=== PATIENT | female | born 2000 | race African-American/Black ===

== ENCOUNTER 2020-11-05 08:00 | Outpatient (CLI) | payer OTHER ==
[2020-11-05 20:50] LABS: BACTERIAL VAGINOSIS DNA POSITIVE (NEGATIVE); CANDIDA GLABRATA DNA NEGATIVE (NEGATIVE); CANDIDA GROUP DNA NEGATIVE (NEGATIVE); CANDIDA KRUSEI DNA NEGATIVE (NEGATIVE); TRICHOMONAS VAGINALIS DNA NEGATIVE (NEGATIVE)
[2020-11-05 23:29] LABS: CHLAMYDIA TRACHOMATIS DNA NEGATIVE (NEGATIVE); NEISSERIA GONORRHOEAE DNA NEGATIVE (NEGATIVE); TRICHOMONAS VAGINALIS DNA NEGATIVE (NEGATIVE)
[2020-11-06 07:40] LABS: HIV AG/AB 4TH GEN NON-REACTIVE (NON-REACTIVE)
[2020-11-06 12:37] LABS: HEPATITIS B SURFACE ANTIGEN NON-REACTIVE (NON-REACTIVE); HEPATITIS C ANTIBODY NON-REACTIVE (NON-REACTIVE)
--- OUTSIDE RECORDS SUMMARY | 2020-11-13 02:18 | EXTERNAL MEDICAL SUMMARY RPT | Continuity of Care Document ---
:2000 Demographics Phone Unavailable Preferred Language Unknown Marital Status Unknown [facility] Affiliation Unknown Race Unknown Ethnic Group Unknown Author Organization [facility] Address [address] [id number] Phone Care Team Providers Name Role Phone PAWinston Unavailable Unavailable RN Unavailable Unavailable MD Unavailable Unavailable Problems date description facility 20201105 HIV 1&2 with reflex All 20201105 Hepatitis B Surface Antigen All 20201105 Never smoker All 20201105 Vaginitis Pathogens-Affirm MEDICAL SUPPORT SPECIALIST III All [id number] Details of drug misuse behavior All 20201105 Hep C AB with Reflex All 20201105 RPR, Serum with Reflex All 20201105 Urine C&S All 20201105 Alcohol intake All 20201105 Alcohol use All 20201105 CHLAM, NEISSERIA, TRICH DNA All [id number] Dysuria All [id number] Hepatitis A, IgM All Medications date description facility [id number] METRONIDAZOLE All [id number] METRONIDAZOLE All [id number] METRONIDAZOLE All [id number] METRONIDAZOLE All Procedures date description facility [id number] RPR, Serum with Reflex All date description facility [id number] Hep C AB with Reflex All date description facility 88506229 HIV 1&2 with reflex All date description facility [id number] Hepatitis A, IgM All date description facility [id number] Hepatitis B Surface Antigen All date description facility [id number] RPR, Serum with Reflex All date description facility [id number] Hep C AB with Reflex All date description facility 73775245 HIV 1&2 with reflex All date description facility [id number] Hepatitis A, IgM All date description facility [id number] Hepatitis B Surface Antigen All Results test status date ordered by attending specimen kiara e T unknown [id number] unknown unknown unknown T unknown [id number] unknown unknown unknown T unknown 70225950 unknown unknown unknown CANDIDA_GLABRATA_DNA unknown 59199437 unknown unknown un known CANDIDA_KRUSEI_DNA unknown 50751050 unknown unknown unkn own CHLAMYDIA_TRACHOMATIS_ unknown 22646414 unknown unknown unknown DNA T unknown 97390377 unknown unknown unknown T unknown 99599503 unknown unknown unknown TRICHOMONAS_VAGINALIS_ unknown 65222555 unknown unknown unknown DNA DIPSTICK_URINE_STRIP_L unknown 78138794 unknown unknown unknown OT_NUMBER Candida_glabrata_by_Re unknown 20201105 unknown unknown unknown js-mgfr_GUP_-_wmwywzx_j ulture TRICHOMONAS_VAGINALIS_ unknown 83154939 unknown unknown unknown DNA_PROBE protein_urine_semiquan unknown 02045186 unknown unknown unknown titative_dipstick_ glucose_urine_semiquan unknown 15078231 unknown unknown unknown titative Erythrocytes_area_in_U unknown 08977961 unknown unknown unknown rine_sediment_by_Micros copy_high_power_field Hepatitis_C_Antibody_S unknown 18974440 unknown unknown unknown ignal_to_Cut-Off chlamydia_DNA_probe unknown 31509602 unknown unknown unk nown Candida_krusei_by_Real unknown [id number] unknown unknown unknown -Time_PCR RBC_urine_dipstick unknown 17693719 unknown unknown unkn own Albumin_Presence_in_Ur unknown 62258865 unknown unknown unknown ine Chlamydia_trachomatis_ unknown 70816948 unknown unknown unknown DNA_Presence_in_Unspeci fied_specimen_by_NAA_wi th_probe_detection urine_color unknown 81076861 unknown unknown unknown bilirubin_urine unknown 88219881 unknown unknown unknown ketones_urine_by_test_ unknown 45734920 unknown unknown unknown strip nitrite_urine_semiquan unknown 43916054 unknown unknown unknown titative pH_urine_semiquantitat unknown 73950843 unknown unknown unknown jorge l specific_gravity_urine unknown 55793364 unknown unknown unknown urobilinogen_urine_sem unknown 05775744 unknown unknown unknown iquantitative_dipstick_ leukocyte_esterase_uri unknown 94265985 unknown unknown unknown ne_by_dipstick appearance_urine unknown 53745321 unknown unknown unknow n urinalysis_routine unknown 78273942 unknown unknown unkn own Appearance_of_Urine unknown 71941067 unknown unknown unk nown Bilirubin.total_Presen unknown 56042005 unknown unknown unknown ce_in_Urine_by_Test_str ip Color_of_Urine unknown 88459208 unknown unknown unknown Glucose_Mass_volume_in unknown 15340635 unknown unknown unknown _Urine_by_Test_strip Ketones_Mass_volume_in unknown 61514504 unknown unknown unknown _Urine_by_Test_strip Leukocyte_esterase_Pre unknown 91829654 unknown unknown unknown sence_in_Urine_by_Test_ strip Nitrite_Presence_in_Ur unknown 32076873 unknown unknown unknown ine_by_Test_strip pH_of_Urine_by_Test_st unknown 14552153 unknown unknown unknown rip Specific_gravity_of_Ur unknown 36715297 unknown unknown unknown ine_by_Test_strip Urobilinogen_Presence_ unknown 79154575 unknown unknown unknown in_Urine_by_Test_strip Candida_glabrata_DNA_P unknown 32344790 unknown unknown unknown resence_in_Vaginal_flui d_by_NAA_with_probe_det ection SIGNAL_TO_CUT-OFF unknown 69457192 unknown unknown unkno wn DIPSTICK_URINE_STRIP_L unknown 31421508 unknown unknown unknown OT_NUMBER protein_urine_semiquan unknown 42409796 unknown unknown unknown titative_dipstick_ glucose_urine_semiquan unknown 50885272 unknown unknown unknown titative Erythrocytes_area_in_U unknown 43872402 unknown unknown unknown rine_sediment_by_Micros copy_high_power_field RBC_urine_dipstick unknown 16901129 unknown unknown unkn own Albumin_Presence_in_Ur unknown 80284277 unknown unknown unknown ine urine_color unknown 97868829 unknown unknown unknown bilirubin_urine unknown 18392356 unknown unknown unknown ketones_urine_by_test_ unknown 24014698 unknown unknown unknown strip nitrite_urine_semiquan unknown 95091370 unknown unknown unknown titative pH_urine_semiquantitat unknown 14992985 unknown unknown unknown jorge l specific_gravity_urine unknown 73428157 unknown unknown unknown urobilinogen_urine_sem unknown 13523424 unknown unknown unknown iquantitative_dipstick_ leukocyte_esterase_uri unknown 06316976 unknown unknown unknown ne_by_dipstick appearance_urine unknown 56881251 unknown unknown unknow n urinalysis_routine unknown 34936131 unknown unknown unkn own Appearance_of_Urine unknown 01587920 unknown unknown unk nown Bilirubin.total_Presen unknown 47074937 unknown unknown unknown ce_in_Urine_by_Test_str ip Color_of_Urine unknown 12705658 unknown unknown unknown Glucose_Mass_volume_in unknown 94166103 unknown unknown unknown _Urine_by_Test_strip Ketones_Mass_volume_in unknown 07042295 unknown unknown unknown _Urine_by_Test_strip Leukocyte_esterase_Pre unknown 47224481 unknown unknown unknown sence_in_Urine_by_Test_ strip Nitrite_Presence_in_Ur unknown 97203380 unknown unknown unknown ine_by_Test_strip pH_of_Urine_by_Test_st unknown 65171321 unknown unknown unknown rip Specific_gravity_of_Ur unknown 22870729 unknown unknown unknown ine_by_Test_strip Urobilinogen_Presence_ unknown 96026971 unknown unknown unknown in_Urine_by_Test_strip T unknown 56033982 unknown unknown unknown T unknown 15744360 unknown unknown unknown T unknown 92732125 unknown unknown unknown CANDIDA_GLABRATA_DNA unknown 79989262 unknown unknown un known CANDIDA_KRUSEI_DNA unknown 27250540 unknown unknown unkn own CHLAMYDIA_TRACHOMATIS_ unknown 65426591 unknown unknown unknown DNA T unknown 25679050 unknown unknown unknown T unknown 17857748 unknown unknown unknown TRICHOMONAS_VAGINALIS_ unknown 14174931 unknown unknown unknown DNA DIPSTICK_URINE_STRIP_L unknown 70437012 unknown unknown unknown OT_NUMBER Candida_glabrata_by_Re unknown 87910524 unknown unknown unknown af-zstj_JXG_-_lfjqryo_c ulture TRICHOMONAS_VAGINALIS_ unknown 62541894 unknown unknown unknown DNA_PROBE protein_urine_semiquan unknown 24847736 unknown unknown unknown titative_dipstick_ glucose_urine_semiquan unknown 21561361 unknown unknown unknown titative Erythrocytes_area_in_U unknown 54597084 unknown unknown unknown rine_sediment_by_Micros copy_high_power_field Hepatitis_C_Antibody_S unknown 55669636 unknown unknown unknown ignal_to_Cut-Off chlamydia_DNA_probe unknown 50004519 unknown unknown unk nown Candida_krusei_by_Real unknown 86740368 unknown unknown unknown -Time_PCR RBC_urine_dipstick unknown 10420988 unknown unknown unkn own Albumin_Presence_in_Ur unknown 03040243 unknown unknown unknown ine Chlamydia_trachomatis_ unknown 87894073 unknown unknown unknown DNA_Presence_in_Unspeci fied_specimen_by_NAA_wi th_probe_detection urine_color unknown 62776325 unknown unknown unknown bilirubin_urine unknown 98687749 unknown unknown unknown ketones_urine_by_test_ unknown 69658198 unknown unknown unknown strip nitrite_urine_semiquan unknown 43226530 unknown unknown unknown titative pH_urine_semiquantitat unknown 99058105 unknown unknown unknown jorge l specific_gravity_urine unknown 32212488 unknown unknown unknown urobilinogen_urine_sem unknown 24166302 unknown unknown unknown iquantitative_dipstick_ leukocyte_esterase_uri unknown 59348214 unknown unknown unknown ne_by_dipstick appearance_urine unknown 72662855 unknown unknown unknow n urinalysis_routine unknown 91502647 unknown unknown unkn own Appearance_of_Urine unknown 35494855 unknown unknown unk nown Bilirubin.total_Presen unknown 68216278 unknown unknown unknown ce_in_Urine_by_Test_str ip Color_of_Urine unknown 69563627 unknown unknown unknown Glucose_Mass_volume_in unknown 35261566 unknown unknown unknown _Urine_by_Test_strip Ketones_Mass_volume_in unknown 94165099 unknown unknown unknown _Urine_by_Test_strip Leukocyte_esterase_Pre unknown 39139475 unknown unknown unknown sence_in_Urine_by_Test_ strip Nitrite_Presence_in_Ur unknown 63575183 unknown unknown unknown ine_by_Test_strip pH_of_Urine_by_Test_st unknown 22457455 unknown unknown unknown rip Specific_gravity_of_Ur unknown 68516399 unknown unknown unknown ine_by_Test_strip Urobilinogen_Presence_ unknown 54100715 unknown unknown unknown in_Urine_by_Test_strip Candida_glabrata_DNA_P unknown 60806772 unknown unknown unknown resence_in_Vaginal_flui d_by_NAA_with_probe_det ection SIGNAL_TO_CUT-OFF unknown 89294699 unknown unknown unkno wn facility observation status value reference units lab abnor mal line range code notes All T unknown NEGATIVE unknown C.TRACH unknown u nknown _DNA All T unknown NEGATIVE unknown C._GLAB unknown u nknown RATA_DNA All T unknown NEGATIVE unknown C._KRUS unknown u nknown EI_DNA All CANDIDA_GLAB unknown NEGATIVE unknown CGLABRA unkn own unknown RATA_DNA TA_DNA All CANDIDA_KRUS unknown NEGATIVE unknown CKRUSEI unkn own unknown EI_DNA _DNA All CHLAMYDIA_TR unknown NEGATIVE unknown CTDNA unkno wn unknown ACHOMATIS_DNA All T unknown 0.00 unknown SIGNAL_ unknown unk nown CUT-OFF All T unknown NEGATIVE unknown T.VAGIN unknown u nknown ALIS_DNA All TRICHOMONAS_ unknown NEGATIVE unknown TVDNA unkno wn unknown VAGINALIS_DNA All DIPSTICK_URI unknown 5067 unknown _101400 unknow n unknown NE_STRIP_LOT_ NUMBER All Candida_glab unknown NEGATIVE unknown _108787 unkn own unknown rata_by_Real- time_PCR_-_va ginal_culture All TRICHOMONAS_ unknown NEGATIVE unknown _113002 unkn own unknown VAGINALIS_DNA _PROBE All protein_urin unknown negative unknown _118 unkno wn unknown e_semiquantit ative_dipstic k_ All glucose_urin unknown negative unknown _123 unkno wn unknown e_semiquantit ative All Erythrocytes unknown non-hemol unknown _13945- unk nown unknown _area_in_Urin yzed trace 1 e_sediment_by _Microscopy_h igh_power_fie ld All Hepatitis_C_ unknown 0.00 unknown _143985 unknow n unknown Antibody_Sign al_to_Cut-Off All chlamydia_DN unknown NEGATIVE unknown _14722 unkno wn unknown A_probe All Candida_krus unknown NEGATIVE unknown _153562 unkn own unknown ei_by_Real-Ti me_PCR All RBC_urine_di unknown non-hemol unknown _170000 unk nown unknown pstick yzed trace 5 All Albumin_Pres unknown negative unknown _1753-3 unkn own unknown ence_in_Urine All Chlamydia_tra unknown NEGATIVE unknown _21613- unkn own unknown chomatis_DNA_ 5 Presence_in_U nspecified_sp ecimen_by_NAA _with_probe_d etection All urine_color unknown straw unknown _2751 unknown unknown All bilirubin_ur unknown negative unknown _319 unkno wn unknown ine All ketones_urin unknown trace (5) unknown _322 unkn own unknown e_by_test_str ip All nitrite_urin unknown negative unknown _323 unkno wn unknown e_semiquantit ative All pH_urine_sem unknown 6 unknown _324 unknown unknown iquantitative All specific_gra unknown 1.020 unknown _325 unknown unknown vity_urine All urobilinogen unknown negative unknown _326 unkno wn unknown _urine_semiqu antitative_di pstick_ All leukocyte_es unknown negative unknown _327 unkno wn unknown terase_urine_ by_dipstick All appearance_u unknown cloudy unknown _328 unknown unknown rine All urinalysis_r unknown Clean unknown _47 unknown unknown outine Catch All Appearance_o unknown cloudy unknown _5767-9 unknow n unknown f_Urine All Bilirubin.to unknown negative unknown _5770-3 unkn own unknown tal_Presence_ in_Urine_by_T est_strip All Color_of_Uri unknown straw unknown _5778-6 unknow n unknown ne All Glucose_Mass unknown negative unknown _5792-7 unkn own unknown _volume_in_Ur ine_by_Test_s trip All Ketones_Mass unknown trace (5) unknown _5797-6 unk nown unknown _volume_in_Ur ine_by_Test_s trip All Leukocyte_es unknown negative unknown _5799-2 unkn own unknown terase_Presen ce_in_Urine_b y_Test_strip All Nitrite_Pres unknown negative unknown _5802-4 unkn own unknown ence_in_Urine _by_Test_stri p All pH_of_Urine_ unknown 6 unknown _5803-2 unknow n unknown by_Test_strip All Specific_gra unknown 1.020 unknown _5811-5 unknow n unknown vity_of_Urine _by_Test_stri p All Urobilinogen unknown negative unknown _5818-0 unkn own unknown _Presence_in_ Urine_by_Test _strip All Candida_glab unknown NEGATIVE unknown _69563- unkn own unknown rata_DNA_Pres 5 ence_in_Vagin al_fluid_by_N AA_with_probe _detection All SIGNAL_TO_CU unknown 0.00 unknown qSIGNAL unknow n unknown T-OFF All DIPSTICK_URI unknown 5067 unknown _101400 unknow n unknown NE_STRIP_LOT_ NUMBER All protein_urin unknown negative unknown _118 unkno wn unknown e_semiquantit ative_dipstic k_ All glucose_urin unknown negative unknown _123 unkno wn unknown e_semiquantit ative All Erythrocytes unknown non-hemol unknown _13945- unk nown unknown _area_in_Urin yzed trace 1 e_sediment_by _Microscopy_h igh_power_fie ld All RBC_urine_di unknown non-hemol unknown _170000 unk nown unknown pstick yzed trace 5 All Albumin_Pres unknown negative unknown _1753-3 unkn own unknown ence_in_Urine All urine_color unknown straw unknown _2751 unknown unknown All bilirubin_ur unknown negative unknown _319 unkno wn unknown ine All ketones_urin unknown trace (5) unknown _322 unkn own unknown e_by_test_str ip All nitrite_urin unknown negative unknown _323 unkno wn unknown e_semiquantit ative All pH_urine_sem unknown 6 unknown _324 unknown unknown iquantitative All specific_gra unknown 1.020 unknown _325 unknown unknown vity_urine All urobilinogen unknown negative unknown _326 unkno wn unknown _urine_semiqu antitative_di pstick_ All leukocyte_es unknown negative unknown _327 unkno wn unknown terase_urine_ by_dipstick All appearance_u unknown cloudy unknown _328 unknown unknown rine All urinalysis_r unknown Clean unknown _47 unknown unknown outine Catch All Appearance_o unknown cloudy unknown _5767-9 unknow n unknown f_Urine All Bilirubin.to unknown negative unknown _5770-3 unkn own unknown tal_Presence_ in_Urine_by_T est_strip All Color_of_Uri unknown straw unknown _5778-6 unknow n unknown ne All Glucose_Mass unknown negative unknown _5792-7 unkn own unknown _volume_in_Ur ine_by_Test_s trip All Ketones_Mass unknown trace (5) unknown _5797-6 unk nown unknown _volume_in_Ur ine_by_Test_s trip All Leukocyte_es unknown negative unknown _5799-2 unkn own unknown terase_Presen ce_in_Urine_b y_Test_strip All Nitrite_Pres unknown negative unknown _5802-4 unkn own unknown ence_in_Urine _by_Test_stri p All pH_of_Urine_ unknown 6 unknown _5803-2 unknow n unknown by_Test_strip All Specific_gra unknown 1.020 unknown _5811-5 unknow n unknown vity_of_Urine _by_Test_stri p All Urobilinogen unknown negative unknown _5818-0 unkn own unknown _Presence_in_ Urine_by_Test _strip All T unknown NEGATIVE unknown C.TRACH unknown u nknown _DNA All T unknown NEGATIVE unknown C._GLAB unknown u nknown RATA_DNA All T unknown NEGATIVE unknown C._KRUS unknown u nknown EI_DNA All CANDIDA_GLAB unknown NEGATIVE unknown CGLABRA unkn own unknown RATA_DNA TA_DNA All CANDIDA_KRUS unknown NEGATIVE unknown CKRUSEI unkn own unknown EI_DNA _DNA All CHLAMYDIA_TR unknown NEGATIVE unknown CTDNA unkno wn unknown ACHOMATIS_DNA All T unknown 0.00 unknown SIGNAL_ unknown unk nown CUT-OFF All T unknown NEGATIVE unknown T.VAGIN unknown u nknown ALIS_DNA All TRICHOMONAS_ unknown NEGATIVE unknown TVDNA unkno wn unknown VAGINALIS_DNA All DIPSTICK_URI unknown 5067 unknown _101400 unknow n unknown NE_STRIP_LOT_ NUMBER All Candida_glab unknown NEGATIVE unknown _108787 unkn own unknown rata_by_Real- time_PCR_-_va ginal_culture All TRICHOMONAS_ unknown NEGATIVE unknown _113002 unkn own unknown VAGINALIS_DNA _PROBE All protein_urin unknown negative unknown _118 unkno wn unknown e_semiquantit ative_dipstic k_ All glucose_urin unknown negative unknown _123 unkno wn unknown e_semiquantit ative All Erythrocytes unknown non-hemol unknown _13945- unk nown unknown _area_in_Urin yzed trace 1 e_sediment_by _Microscopy_h igh_power_fie ld All Hepatitis_C_ unknown 0.00 unknown _143985 unknow n unknown Antibody_Sign al_to_Cut-Off All chlamydia_DN unknown NEGATIVE unknown _14722 unkno wn unknown A_probe All Candida_krus unknown NEGATIVE unknown _153562 unkn own unknown ei_by_Real-Ti me_PCR All RBC_urine_di unknown non-hemol unknown _170000 unk nown unknown pstick yzed trace 5 All Albumin_Pres unknown negative unknown _1753-3 unkn own unknown ence_in_Urine All Chlamydia_tra unknown NEGATIVE unknown _21613- unkn own unknown chomatis_DNA_ 5 Presence_in_U nspecified_sp ecimen_by_NAA _with_probe_d etection All urine_color unknown straw unknown _2751 unknown unknown All bilirubin_ur unknown negative unknown _319 unkno wn unknown ine All ketones_urin unknown trace (5) unknown _322 unkn own unknown e_by_test_str ip All nitrite_urin unknown negative unknown _323 unkno wn unknown e_semiquantit ative All pH_urine_sem unknown 6 unknown _324 unknown unknown iquantitative All specific_gra unknown 1.020 unknown _325 unknown unknown vity_urine All urobilinogen unknown negative unknown _326 unkno wn unknown _urine_semiqu antitative_di pstick_ All leukocyte_es unknown negative unknown _327 unkno wn unknown terase_urine_ by_dipstick All appearance_u unknown cloudy unknown _328 unknown unknown rine All urinalysis_r unknown Clean unknown _47 unknown unknown outine Catch All Appearance_o unknown cloudy unknown _5767-9 unknow n unknown f_Urine All Bilirubin.to unknown negative unknown _5770-3 unkn own unknown tal_Presence_ in_Urine_by_T est_strip All Color_of_Uri unknown straw unknown _5778-6 unknow n unknown ne All Glucose_Mass unknown negative unknown _5792-7 unkn own unknown _volume_in_Ur ine_by_Test_s trip All Ketones_Mass unknown trace (5) unknown _5797-6 unk nown unknown _volume_in_Ur ine_by_Test_s trip All Leukocyte_es unknown negative unknown _5799-2 unkn own unknown terase_Presen ce_in_Urine_b y_Test_strip All Nitrite_Pres unknown negative unknown _5802-4 unkn own unknown ence_in_Urine _by_Test_stri p All pH_of_Urine_ unknown 6 unknown _5803-2 unknow n unknown by_Test_strip All Specific_gra unknown 1.020 unknown _5811-5 unknow n unknown vity_of_Urine _by_Test_stri p All Urobilinogen unknown negative unknown _5818-0 unkn own unknown _Presence_in_ Urine_by_Test _strip All Candida_glab unknown NEGATIVE unknown _69563- unkn own unknown rata_DNA_Pres 5 ence_in_Vagin al_fluid_by_N AA_with_probe _detection All SIGNAL_TO_CU unknown 0.00 unknown qSIGNAL unknow n unknown T-OFF Vital Signs date measurement value source 20201105 BMI 22.48 kg/m2 20201105 BP_diastolic 71 mm[Hg] 20201105 BP_systolic 123 mm[Hg] 20201105 heart_rate 89 /min 20201105 height_metric 165.1 cm 20201105 height_standard 65 in 20201105 respiration_rate 16 /min 20201105 temperature_metric 36.28 C 20201105 temperature_standard 97.3 F 20201105 weight_metric 61.05 kg 20201105 weight_standard 134.6 lb 20201105 BMI 22.48 kg/m2 20201105 BP_diastolic 71 mm[Hg] 20201105 BP_systolic 123 mm[Hg] 20201105 heart_rate 89 /min 20201105 height_metric 165.1 cm 20201105 height_standard 65 in 20201105 respiration_rate 16 /min 20201105 temperature_metric 36.28 C 20201105 temperature_standard 97.3 F 20201105 weight_metric 61.05 kg 20201105 weight_standard 134.6 lb 20201105 BMI 22.48 kg/m2 20201105 BP_diastolic 71 mm[Hg] 20201105 BP_systolic 123 mm[Hg] 20201105 heart_rate 89 /min 20201105 height_metric 165.1 cm 20201105 height_standard 65 in 20201105 respiration_rate 16 /min 20201105 temperature_metric 36.28 C 20201105 temperature_standard 97.3 F 20201105 weight_metric 61.05 kg 20201105 weight_standard 134.6 lb Social History date description facility [id number]
== END 2020-11-05 23:59 | disposition home or self-care (01) ==
LOC: LAB.N 08:00
PROVIDERS: ATTEND Physician Assistant Medical
DX: R30.0 Dysuria (principal)
CPT/HCPCS: 36415; 86592; 86709; 86803; 87086; 87340; 87389; 87491; 87591; 87661; 87801

== ENCOUNTER 2020-11-29 12:52 | Emergency (ER) | payer OTHER ==
--- OUTSIDE RECORDS SUMMARY | 2020-11-29 12:56 | EXTERNAL MEDICAL SUMMARY RPT | Continuity of Care Document ---
:2000 Demographics Phone Unavailable Preferred Language Qatari Marital Status Unknown Yarsani Affiliation Unknown Race Unknown Ethnic Group Unknown Author Organization [place] Address [address] [id number] Phone Care Team Providers Name Role Phone RN, Amanda Del Angel, Unavailable Unavailable DAMARIS, Abraham Zavala, Unavailable Unavailable , Dionicio Schultz, Unavailable Unavailable Kelly Kimble Unavailable Unavailable Problems date description facility 20201105 HIV 1&2 with reflex All 20201105 Hepatitis B Surface Antigen All 20201105 Never smoker All 20201105 Vaginitis Pathogens-Affirm P[employer] III All 20201105 Details of drug misuse behavior All 20201105 Hep C AB with Reflex All 20201105 RPR, Serum with Reflex All 20201105 Urine C&S All 20201105 Alcohol intake All 20201105 Alcohol use All 20201105 CHLAM, NEISSERIA, TRICH DNA All 20201105 Dysuria All 20201105 Hepatitis A, IgM All Medications date description facility [id number] METRONIDAZOLE All 20201106 METRONIDAZOLE All [id number] METRONIDAZOLE All [id number] METRONIDAZOLE All 63003024 Diazepam 5 MG Oral [facility] Procedures date description facility [id number] RPR, Serum with Reflex All date description facility [id number] Hep C AB with Reflex All date description facility 20201105 HIV 1&2 with reflex All date description facility [id number] Hepatitis A, IgM All date description facility [id number] Hepatitis B Surface Antigen All date description facility [id number] RPR, Serum with Reflex All date description facility 32133665 Hep C AB with Reflex All date description facility 87490918 HIV 1&2 with reflex All date description facility [id number] Hepatitis A, IgM All date description facility 15903247 Hepatitis B Surface Antigen All date description facility 12122033 [facility] Results test status date ordered by attending specimen kiara e T unknown 20201105 unknown unknown unknown T unknown 20201105 unknown unknown unknown T unknown [id number] unknown unknown unknown CANDIDA_GLABRATA_DNA unknown 20201105 unknown unknown un known CANDIDA_KRUSEI_DNA unknown 20201105 unknown unknown unkn own CHLAMYDIA_TRACHOMATIS_ unknown 20201105 unknown unknown unknown DNA T unknown 20201105 unknown unknown unknown T unknown 20201105 unknown unknown unknown TRICHOMONAS_VAGINALIS_ unknown [id number] unknown unknown unknown DNA DIPSTICK_URINE_STRIP_L unknown 46946495 unknown unknown unknown OT_NUMBER Candida_glabrata_by_Re unknown 12724411 unknown unknown unknown rx-ssdj_NMD_-_ghsadfx_c ulture TRICHOMONAS_VAGINALIS_ unknown 76370948 unknown unknown unknown DNA_PROBE protein_urine_semiquan unknown 89029271 unknown unknown unknown titative_dipstick_ glucose_urine_semiquan unknown 93464608 unknown unknown unknown titative Erythrocytes_area_in_U unknown 54410274 unknown unknown unknown rine_sediment_by_Micros copy_high_power_field Hepatitis_C_Antibody_S unknown 13895854 unknown unknown unknown ignal_to_Cut-Off chlamydia_DNA_probe unknown 54945678 unknown unknown unk nown Candida_krusei_by_Real unknown 22406610 unknown unknown unknown -Time_PCR RBC_urine_dipstick unknown 21924482 unknown unknown unkn own Albumin_Presence_in_Ur unknown 88623300 unknown unknown unknown ine Chlamydia_trachomatis_ unknown 04092883 unknown unknown unknown DNA_Presence_in_Unspeci fied_specimen_by_NAA_wi th_probe_detection urine_color unknown 23402924 unknown unknown unknown bilirubin_urine unknown 64479180 unknown unknown unknown ketones_urine_by_test_ unknown 37341661 unknown unknown unknown strip nitrite_urine_semiquan unknown 44135968 unknown unknown unknown titative pH_urine_semiquantitat unknown 38519338 unknown unknown unknown jorge l specific_gravity_urine unknown 69337097 unknown unknown unknown urobilinogen_urine_sem unknown 79318305 unknown unknown unknown iquantitative_dipstick_ leukocyte_esterase_uri unknown 86452315 unknown unknown unknown ne_by_dipstick appearance_urine unknown 16715187 unknown unknown unknow n urinalysis_routine unknown 26491745 unknown unknown unkn own Appearance_of_Urine unknown 22123910 unknown unknown unk nown Bilirubin.total_Presen unknown 66127122 unknown unknown unknown ce_in_Urine_by_Test_str ip Color_of_Urine unknown 38037727 unknown unknown unknown Glucose_Mass_volume_in unknown 42825756 unknown unknown unknown _Urine_by_Test_strip Ketones_Mass_volume_in unknown 68080708 unknown unknown unknown _Urine_by_Test_strip Leukocyte_esterase_Pre unknown 25170233 unknown unknown unknown sence_in_Urine_by_Test_ strip Nitrite_Presence_in_Ur unknown 42871203 unknown unknown unknown ine_by_Test_strip pH_of_Urine_by_Test_st unknown 52447883 unknown unknown unknown rip Specific_gravity_of_Ur unknown 36739039 unknown unknown unknown ine_by_Test_strip Urobilinogen_Presence_ unknown 91671077 unknown unknown unknown in_Urine_by_Test_strip Candida_glabrata_DNA_P unknown 90522903 unknown unknown unknown resence_in_Vaginal_flui d_by_NAA_with_probe_det ection SIGNAL_TO_CUT-OFF unknown 11527620 unknown unknown unkno wn DIPSTICK_URINE_STRIP_L unknown 49453920 unknown unknown unknown OT_NUMBER protein_urine_semiquan unknown 30661269 unknown unknown unknown titative_dipstick_ glucose_urine_semiquan unknown 98775880 unknown unknown unknown titative Erythrocytes_area_in_U unknown 50822909 unknown unknown unknown rine_sediment_by_Micros copy_high_power_field RBC_urine_dipstick unknown 18078616 unknown unknown unkn own Albumin_Presence_in_Ur unknown 71254531 unknown unknown unknown ine urine_color unknown 85289526 unknown unknown unknown bilirubin_urine unknown 48308347 unknown unknown unknown ketones_urine_by_test_ unknown 83372407 unknown unknown unknown strip nitrite_urine_semiquan unknown 86817283 unknown unknown unknown titative pH_urine_semiquantitat unknown 28699202 unknown unknown unknown jorge l specific_gravity_urine unknown 09586334 unknown unknown unknown urobilinogen_urine_sem unknown 90988267 unknown unknown unknown iquantitative_dipstick_ leukocyte_esterase_uri unknown 50631839 unknown unknown unknown ne_by_dipstick appearance_urine unknown 12599429 unknown unknown unknow n urinalysis_routine unknown 26581584 unknown unknown unkn own Appearance_of_Urine unknown 52936332 unknown unknown unk nown Bilirubin.total_Presen unknown 77638168 unknown unknown unknown ce_in_Urine_by_Test_str ip Color_of_Urine unknown 31944259 unknown unknown unknown Glucose_Mass_volume_in unknown 30379772 unknown unknown unknown _Urine_by_Test_strip Ketones_Mass_volume_in unknown 38270608 unknown unknown unknown _Urine_by_Test_strip Leukocyte_esterase_Pre unknown 02688014 unknown unknown unknown sence_in_Urine_by_Test_ strip Nitrite_Presence_in_Ur unknown 40552018 unknown unknown unknown ine_by_Test_strip pH_of_Urine_by_Test_st unknown 12419093 unknown unknown unknown rip Specific_gravity_of_Ur unknown 60639329 unknown unknown unknown ine_by_Test_strip Urobilinogen_Presence_ unknown 15652007 unknown unknown unknown in_Urine_by_Test_strip T unknown 47887713 unknown unknown unknown T unknown 74616123 unknown unknown unknown T unknown 59570688 unknown unknown unknown CANDIDA_GLABRATA_DNA unknown 92384334 unknown unknown un known CANDIDA_KRUSEI_DNA unknown 19635391 unknown unknown unkn own CHLAMYDIA_TRACHOMATIS_ unknown 94257547 unknown unknown unknown DNA T unknown 75403808 unknown unknown unknown T unknown 01298524 unknown unknown unknown TRICHOMONAS_VAGINALIS_ unknown 72968057 unknown unknown unknown DNA DIPSTICK_URINE_STRIP_L unknown 65644439 unknown unknown unknown OT_NUMBER Candida_glabrata_by_Re unknown 65870193 unknown unknown unknown sm-qytd_VNI_-_kqtxtdi_s ulture TRICHOMONAS_VAGINALIS_ unknown 72012424 unknown unknown unknown DNA_PROBE protein_urine_semiquan unknown 62889566 unknown unknown unknown titative_dipstick_ glucose_urine_semiquan unknown 81468826 unknown unknown unknown titative Erythrocytes_area_in_U unknown 84387158 unknown unknown unknown rine_sediment_by_Micros copy_high_power_field Hepatitis_C_Antibody_S unknown 34991534 unknown unknown unknown ignal_to_Cut-Off chlamydia_DNA_probe unknown 12564290 unknown unknown unk nown Candida_krusei_by_Real unknown 92518458 unknown unknown unknown -Time_PCR RBC_urine_dipstick unknown 91924552 unknown unknown unkn own Albumin_Presence_in_Ur unknown 68222360 unknown unknown unknown ine Chlamydia_trachomatis_ unknown 15153156 unknown unknown unknown DNA_Presence_in_Unspeci fied_specimen_by_NAA_wi th_probe_detection urine_color unknown 96896813 unknown unknown unknown bilirubin_urine unknown 94639669 unknown unknown unknown ketones_urine_by_test_ unknown 26955419 unknown unknown unknown strip nitrite_urine_semiquan unknown 33876573 unknown unknown unknown titative pH_urine_semiquantitat unknown 30374553 unknown unknown unknown jorge l specific_gravity_urine unknown 31296581 unknown unknown unknown urobilinogen_urine_sem unknown 04291829 unknown unknown unknown iquantitative_dipstick_ leukocyte_esterase_uri unknown 59391543 unknown unknown unknown ne_by_dipstick appearance_urine unknown 44967546 unknown unknown unknow n urinalysis_routine unknown 81500516 unknown unknown unkn own Appearance_of_Urine unknown 13390952 unknown unknown unk nown Bilirubin.total_Presen unknown 20826785 unknown unknown unknown ce_in_Urine_by_Test_str ip Color_of_Urine unknown 41964728 unknown unknown unknown Glucose_Mass_volume_in unknown 35320192 unknown unknown unknown _Urine_by_Test_strip Ketones_Mass_volume_in unknown 68561306 unknown unknown unknown _Urine_by_Test_strip Leukocyte_esterase_Pre unknown 76800184 unknown unknown unknown sence_in_Urine_by_Test_ strip Nitrite_Presence_in_Ur unknown 53923010 unknown unknown unknown ine_by_Test_strip pH_of_Urine_by_Test_st unknown 87233820 unknown unknown unknown rip Specific_gravity_of_Ur unknown 85877959 unknown unknown unknown ine_by_Test_strip Urobilinogen_Presence_ unknown 75629761 unknown unknown unknown in_Urine_by_Test_strip Candida_glabrata_DNA_P unknown 98441769 unknown unknown unknown resence_in_Vaginal_flui d_by_NAA_with_probe_det ection SIGNAL_TO_CUT-OFF unknown 70645105 unknown unknown unkno wn facility observation status [...] weight_metric 61.05 kg 20201105 weight_standard 134.6 lb date measurement value source 20201127 BMI 22.1 kg/m2 20201127 BP_diastolic 71 mm[Hg] 20201127 BP_systolic 108 mm[Hg] 20201127 heart_rate 71 /min 20201127 height_metric 165.1 cm 20201127 height_standard 65 in 20201127 respiration_rate 16 /min 20201127 temperature_metric 36.61 C 20201127 temperature_standard 97.9 F 20201127 weight_metric 60.32 kg 20201127 weight_standard 132.98 lb Social History date description facility [id number]
--- OUTSIDE RECORDS SUMMARY | 2020-11-29 13:17 | EXTERNAL MEDICAL SUMMARY RPT | Continuity of Care Document ---
:2000 Demographics Phone Unavailable Preferred Language Norwegian Marital Status Unknown Mandaen Affiliation Unknown Race Unknown Ethnic Group Unknown Author Organization [place] Address [address] [id number] Phone Care Team Providers Name Role Phone MD, Dionicio Schultz, Unavailable Unavailable Abraham OCAMPO, Unavailable Unavailable RN, Amanda Del Anegl, Unavailable Unavailable Kelly Kimble Unavailable Unavailable Problems date description facility 20201105 HIV 1&2 with reflex All 20201105 Hepatitis B Surface Antigen All 20201105 Never smoker All 20201105 Vaginitis Pathogens-Affirm [employer] III All 20201105 Details of drug misuse behavior All 20201105 Hep C AB with Reflex All 20201105 RPR, Serum with Reflex All 20201105 Urine C&S All 20201105 Alcohol intake All 20201105 Alcohol use All 20201105 CHLAM, NEISSERIA, TRICH DNA All 20201105 Dysuria All 20201105 Hepatitis A, IgM All Medications date description facility [id number] METRONIDAZOLE All 20201106 METRONIDAZOLE All 35513434 METRONIDAZOLE All 67797436 METRONIDAZOLE All 67660335 Diazepam 5 MG Oral [facility] Procedures date description facility [id number] RPR, Serum with Reflex All date description facility 09305397 Hep C AB with Reflex All date description facility 20201105 HIV 1&2 with reflex All date description facility 27301481 Hepatitis A, IgM All date description facility 03519627 Hepatitis B Surface Antigen All date description facility 53382807 RPR, Serum with Reflex All date description facility 39106446 Hep C AB with Reflex All date description facility 19005301 HIV 1&2 with reflex All date description facility 00031464 Hepatitis A, IgM All date description facility 84157182 Hepatitis B Surface Antigen All date description facility 30896870 [facility] Results test status date ordered by attending specimen kiara e T unknown 20201105 unknown unknown unknown T unknown 20201105 unknown unknown unknown T unknown [id number] unknown unknown unknown CANDIDA_GLABRATA_DNA unknown 20201105 unknown unknown un known CANDIDA_KRUSEI_DNA unknown 20201105 unknown unknown unkn own CHLAMYDIA_TRACHOMATIS_ unknown 20201105 unknown unknown unknown DNA T unknown 20201105 unknown unknown unknown T unknown 20201105 unknown unknown unknown TRICHOMONAS_VAGINALIS_ unknown 10889606 unknown unknown unknown DNA DIPSTICK_URINE_STRIP_L unknown 33450346 unknown unknown unknown OT_NUMBER Candida_glabrata_by_Re unknown 72752273 unknown unknown unknown ln-dsdx_BJP_-_gqdagwu_p ulture TRICHOMONAS_VAGINALIS_ unknown 93808098 unknown unknown unknown DNA_PROBE protein_urine_semiquan unknown 59615441 unknown unknown unknown titative_dipstick_ glucose_urine_semiquan unknown 82444493 unknown unknown unknown titative Erythrocytes_area_in_U unknown 50938144 unknown unknown unknown rine_sediment_by_Micros copy_high_power_field Hepatitis_C_Antibody_S unknown 57508794 unknown unknown unknown ignal_to_Cut-Off chlamydia_DNA_probe unknown 55208059 unknown unknown unk nown Candida_krusei_by_Real unknown 72839775 unknown unknown unknown -Time_PCR RBC_urine_dipstick unknown 84075178 unknown unknown unkn own Albumin_Presence_in_Ur unknown 55107085 unknown unknown unknown ine Chlamydia_trachomatis_ unknown 75179033 unknown unknown unknown DNA_Presence_in_Unspeci fied_specimen_by_NAA_wi th_probe_detection urine_color unknown 33279835 unknown unknown unknown bilirubin_urine unknown 17964529 unknown unknown unknown ketones_urine_by_test_ unknown 41216811 unknown unknown unknown strip nitrite_urine_semiquan unknown 36373555 unknown unknown unknown titative pH_urine_semiquantitat unknown 11165921 unknown unknown unknown jorge l specific_gravity_urine unknown 07257537 unknown unknown unknown urobilinogen_urine_sem unknown 80421295 unknown unknown unknown iquantitative_dipstick_ leukocyte_esterase_uri unknown 80695874 unknown unknown unknown ne_by_dipstick appearance_urine unknown 50729906 unknown unknown unknow n urinalysis_routine unknown 82800725 unknown unknown unkn own Appearance_of_Urine unknown 70614985 unknown unknown unk nown Bilirubin.total_Presen unknown 21934054 unknown unknown unknown ce_in_Urine_by_Test_str ip Color_of_Urine unknown 02536537 unknown unknown unknown Glucose_Mass_volume_in unknown 07842487 unknown unknown unknown _Urine_by_Test_strip Ketones_Mass_volume_in unknown 75103958 unknown unknown unknown _Urine_by_Test_strip Leukocyte_esterase_Pre unknown 60867519 unknown unknown unknown sence_in_Urine_by_Test_ strip Nitrite_Presence_in_Ur unknown 90651228 unknown unknown unknown ine_by_Test_strip pH_of_Urine_by_Test_st unknown 10502101 unknown unknown unknown rip Specific_gravity_of_Ur unknown 71256324 unknown unknown unknown ine_by_Test_strip Urobilinogen_Presence_ unknown 78233714 unknown unknown unknown in_Urine_by_Test_strip Candida_glabrata_DNA_P unknown 98862643 unknown unknown unknown resence_in_Vaginal_flui d_by_NAA_with_probe_det ection SIGNAL_TO_CUT-OFF unknown 42942629 unknown unknown unkno wn DIPSTICK_URINE_STRIP_L unknown 77990105 unknown unknown unknown OT_NUMBER protein_urine_semiquan unknown 98759046 unknown unknown unknown titative_dipstick_ glucose_urine_semiquan unknown 59156270 unknown unknown unknown titative Erythrocytes_area_in_U unknown 80752778 unknown unknown unknown rine_sediment_by_Micros copy_high_power_field RBC_urine_dipstick unknown 98012963 unknown unknown unkn own Albumin_Presence_in_Ur unknown 74450962 unknown unknown unknown ine urine_color unknown 17266774 unknown unknown unknown bilirubin_urine unknown 72330986 unknown unknown unknown ketones_urine_by_test_ unknown 71883403 unknown unknown unknown strip nitrite_urine_semiquan unknown 37888732 unknown unknown unknown titative pH_urine_semiquantitat unknown 06856807 unknown unknown unknown jorge l specific_gravity_urine unknown 99950959 unknown unknown unknown urobilinogen_urine_sem unknown 70290788 unknown unknown unknown iquantitative_dipstick_ leukocyte_esterase_uri unknown 36461538 unknown unknown unknown ne_by_dipstick appearance_urine unknown 85546271 unknown unknown unknow n urinalysis_routine unknown 39835358 unknown unknown unkn own Appearance_of_Urine unknown 34847301 unknown unknown unk nown Bilirubin.total_Presen unknown 74669761 unknown unknown unknown ce_in_Urine_by_Test_str ip Color_of_Urine unknown 57366395 unknown unknown unknown Glucose_Mass_volume_in unknown 04022858 unknown unknown unknown _Urine_by_Test_strip Ketones_Mass_volume_in unknown 15148172 unknown unknown unknown _Urine_by_Test_strip Leukocyte_esterase_Pre unknown 59698738 unknown unknown unknown sence_in_Urine_by_Test_ strip Nitrite_Presence_in_Ur unknown 26257877 unknown unknown unknown ine_by_Test_strip pH_of_Urine_by_Test_st unknown 02547158 unknown unknown unknown rip Specific_gravity_of_Ur unknown 40702755 unknown unknown unknown ine_by_Test_strip Urobilinogen_Presence_ unknown 96445658 unknown unknown unknown in_Urine_by_Test_strip T unknown 14669608 unknown unknown unknown T unknown 56915059 unknown unknown unknown T unknown 50097486 unknown unknown unknown CANDIDA_GLABRATA_DNA unknown 25060759 unknown unknown un known CANDIDA_KRUSEI_DNA unknown 85648992 unknown unknown unkn own CHLAMYDIA_TRACHOMATIS_ unknown 30350069 unknown unknown unknown DNA T unknown 61257137 unknown unknown unknown T unknown 68533636 unknown unknown unknown TRICHOMONAS_VAGINALIS_ unknown 71542791 unknown unknown unknown DNA DIPSTICK_URINE_STRIP_L unknown 48188411 unknown unknown unknown OT_NUMBER Candida_glabrata_by_Re unknown 54148484 unknown unknown unknown gh-jkmp_PXL_-_dkgjcvw_k ulture TRICHOMONAS_VAGINALIS_ unknown 18330078 unknown unknown unknown DNA_PROBE protein_urine_semiquan unknown 85442229 unknown unknown unknown titative_dipstick_ glucose_urine_semiquan unknown 41022415 unknown unknown unknown titative Erythrocytes_area_in_U unknown 74850200 unknown unknown unknown rine_sediment_by_Micros copy_high_power_field Hepatitis_C_Antibody_S unknown 98284530 unknown unknown unknown ignal_to_Cut-Off chlamydia_DNA_probe unknown 69873077 unknown unknown unk nown Candida_krusei_by_Real unknown 68554255 unknown unknown unknown -Time_PCR RBC_urine_dipstick unknown 79725233 unknown unknown unkn own Albumin_Presence_in_Ur unknown 70202156 unknown unknown unknown ine Chlamydia_trachomatis_ unknown 02396810 unknown unknown unknown DNA_Presence_in_Unspeci fied_specimen_by_NAA_wi th_probe_detection urine_color unknown 08084623 unknown unknown unknown bilirubin_urine unknown 85510588 unknown unknown unknown ketones_urine_by_test_ unknown 22247340 unknown unknown unknown strip nitrite_urine_semiquan unknown 47362531 unknown unknown unknown titative pH_urine_semiquantitat unknown 43518731 unknown unknown unknown jorge l specific_gravity_urine unknown 35926870 unknown unknown unknown urobilinogen_urine_sem unknown 80752655 unknown unknown unknown iquantitative_dipstick_ leukocyte_esterase_uri unknown 14089881 unknown unknown unknown ne_by_dipstick appearance_urine unknown 06775698 unknown unknown unknow n urinalysis_routine unknown 29166141 unknown unknown unkn own Appearance_of_Urine unknown 52335892 unknown unknown unk nown Bilirubin.total_Presen unknown 29293776 unknown unknown unknown ce_in_Urine_by_Test_str ip Color_of_Urine unknown 13516466 unknown unknown unknown Glucose_Mass_volume_in unknown 60197172 unknown unknown unknown _Urine_by_Test_strip Ketones_Mass_volume_in unknown 04101590 unknown unknown unknown _Urine_by_Test_strip Leukocyte_esterase_Pre unknown 43077267 unknown unknown unknown sence_in_Urine_by_Test_ strip Nitrite_Presence_in_Ur unknown 74005267 unknown unknown unknown ine_by_Test_strip pH_of_Urine_by_Test_st unknown 48334979 unknown unknown unknown rip Specific_gravity_of_Ur unknown 70613071 unknown unknown unknown ine_by_Test_strip Urobilinogen_Presence_ unknown 56873771 unknown unknown unknown in_Urine_by_Test_strip Candida_glabrata_DNA_P unknown 13669607 unknown unknown unknown resence_in_Vaginal_flui d_by_NAA_with_probe_det ection SIGNAL_TO_CUT-OFF unknown 42768529 unknown unknown unkno wn facility observation status [...] 132.98 lb Social History date description facility [id number]
[2020-11-29 13:32] LABS: HCG UR QUAL NEGATIVE
--- NOTE | 2020-11-29 13:42 | ED Physician Documentation ---
History of Present Illness - Stated complaint Stated Complaint: COUGHING UP BLOOD - Chief complaint Chief Complaint: Resp - History obtained from History obtained from: Patient - Additonal information Additional information: 20-year-old woman has had ongoing vaginal bleeding for the last 6 months. She saw her doctor and reportedly had an ultrasound done. It was felt to be due to her control but she notes that she did not have her control started, Depo-Provera, until 3 months after the initiation of the bleeding so she thinks that is likely relevant. At the beginning the vaginal bleeding was heavy, now it is now local [employer] haz[employer]. She denies a possibility of . Today she was coughing and coughed up several times mucus mixed with blood. She not short of breath and she feels fine. She denies pedal edema or calf pain. No recent travel. No history of DVT or PE. No risk factors for TB, such as incarceration, international travel or TB contacts. Last negative TB skin test 4 years ago. Never positive. Review of Systems Constitutional: denies: Fever, Chills, Fatigue Nose: denies: Rhinorrhea / runny nose, Congestion Cardiac: denies: Chest pain / pressure, Palpitations Respiratory: denies: Dyspnea, Cough PD PAST MEDICAL HISTORY - Present Medications Home Medications: Ambulatory Orders Medication Instructions Recorded Confirmed Diazepam [Valium] 5 mg PO TID PRN 11/29/20 11/29/20 - Allergies Allergies/Adverse Reactions: Allergies Allergy/AdvReac Type Severity Reaction Status Date / Time No Known Drug Allergies Allergy Verified 11/29/20 13:08 PD ED PE NORMAL - Vitals Vital signs reviewed: Yes - General General: Alert and oriented X 3, No acute distress - HEENT HEENT: PERRL, EOMI - Neck Neck: Supple, no meningeal sign, No bony TTP - Cardiac Cardiac: RRR, No murmur - Respiratory Respiratory: No respiratory distress, Clear bilaterally - Abdomen Abdomen: Non tender - Extremities Extremities: No edema, No calf tenderness / cord - Neuro Neuro: Alert and oriented X 3, Normal speech Results - Vitals Vitals: Vital Signs - 24 hr 11/29/20 11/29/20 13:01 14:52 Temperature 37.0 C 36.9 C Heart Rate 87 74 Respiratory 16 18 Rate Blood Pressure 111/71 104/75 O2 Saturation 99 100 Oxygen O2 Source Room air - Labs Labs: Laboratory Tests 11/29/20 11/29/20 11/29/20 13:23 13:45 13:45 WBC 4.9 RBC 4.23 Hgb 13.3 Hct 40.5 MCV 95.7 MCH 31.4 H MCHC 32.8 RDW 11.6 L Plt Count 217 MPV 11.2 H Neut # (Auto) 2.0 Lymph # (Auto) 2.4 [place] # (Auto) 0.3 Eos # (Auto) 0.2 Baso # (Auto) 0.1 Absolute Nucleated RBC 0.00 Nucleated RBC % 0.0 PT 13.0 H INR 1.2 APTT 26.7 Sodium Potassium Chloride Carbon Dioxide Anion Gap BUN Creatinine Estimated GFR (MDRD) Glucose Calcium Urine HCG, Qual NEGATIVE 11/29/20 13:45 WBC RBC Hgb Hct MCV MCH MCHC RDW Plt Count MPV Neut # (Auto) Lymph # (Auto) [place] # (Auto) Eos # (Auto) Baso # (Auto) Absolute Nucleated RBC Nucleated RBC % PT INR APTT Sodium 138 Potassium 3.7 Chloride 106 Carbon Dioxide 25 Anion Gap 7.0 BUN 11 Creatinine 0.8 Estimated GFR (MDRD) 109 Glucose 83 Calcium 10.0 Urine HCG, Qual PD MEDICAL DECISION MAKING - ED course ED course: 20-year-old woman presents with a combination of ongoing vaginal bleeding of unclear etiology and hemoptysis today mixed with mucus. DVT/PE is considered, that said she has no leg symptoms, recent travel, history of same, shortness of breath, tachycardia, hypoxemia. I do not think further work-up for that is nece ssary. Pneumonia is considered but her chest x-ray is clear and she is not short of breath or febrile. TB is considered but she has no risk factors for that. Given the combination with the ongoing vaginal bleeding, platelet or clotting factor abnormality is considered, such as von Willebrand's. Departure - Departure Disposition: 01 Home, Self Care Clinical Impression: Vaginal bleeding, Hemoptysis Condition: Good Record reviewed to determine appropriate education?: Yes Instructions: ED Hemoptysis, ED Bleed Irregular Vaginal Comments: We did an ultrasound today, no evidence of fibroids or other masses or abnormalities of your uterus or pelvis. We also did extensive blood work to make sure you were not anemic or have clotting abnormalities. All the tests we ran here are normal. He still need to follow-up with your primary care physician and discuss what is going on, and I also want you to return if worse, especially if you develop shortness of breath, fever, heavier bleeding or other new or concerning symptoms.
--- NOTE | 2020-11-29 13:44 | XRAY Report ---
PROCEDURE: Chest 2 View X-Ray INDICATIONS: Hemoptysis TECHNIQUE: 2 view(s) of the chest. COMPARISON: None. FINDINGS: Surgical changes and devices: None. Lungs and pleura: No pleural effusions or pneumothorax. Lungs are clear. Mediastinum: Mediastinal contours are normal. Heart size is normal. Bones and chest wall: No suspicious bony abnormalities. Soft tissues appear unremarkable. IMPRESSION: No acute cardiopulmonary process demonstrated radiographically. Reviewed by: Se Stein MD on 11/29/2020 1:43 PM PDT Approved by: Se Stein MD on 11/29/2020 1:43 PM PDT Station ID: [id number]
[2020-11-29 13:54] LABS: BASOPHILS # (AUTO) 0.1 10^3/uL (0.0-0.1); BASOPHILS % (AUTO) 1.4 %; EOSINOPHILS # (AUTO) 0.2 10^3/uL (0.0-0.7); EOSINOPHILS % (AUTO) 4.5 %; HCT - HEMATOCRIT 40.5 % (37.0-47.0); HGB - HEMOGLOBIN 13.3 g/dL (12.0-16.0); LYMPHOCYTES # (AUTO) 2.4 10^3/uL (1.5-3.5); LYMPHOCYTES % (AUTO) 48.4 %; MEAN CORPUSCULAR HEMOGLOBIN 31.4 pg (27.0-31.0); MEAN CORPUSCULAR HGB CONC 32.8 g/dL (32.0-36.0); MEAN CORPUSCULAR VOLUME 95.7 fL (81.0-99.0); MEAN PLATELET VOLUME 11.2 fL (7.9-10.8); MONOCYTES # (AUTO) 0.3 10^3/uL (0.0-1.0); MONOCYTES % (AUTO) 5.1 %; NEUTROPHILS % (AUTO) 40.4 %; PLT - PLATELET COUNT 217 10^3/uL (130-450); RED BLOOD COUNT 4.23 10^6/uL (4.20-5.40); RED CELL DISTRIBUTION WIDTH 11.6 % (12.0-15.0); WHITE BLOOD COUNT 4.9 x10^3/uL (4.8-10.8)
[2020-11-29 14:00] LABS: INR 1.2 (0.8-1.2)
[2020-11-29 14:02] LABS: CREATININE 0.8 mg/dL (0.4-1.0); POTASSIUM 3.7 mmol/L (3.5-5.0)
[2020-11-29 14:07] LABS: PARTIAL THROMBOPLASTIN TIME 26.7 secs (24.9-33.3)
[2020-11-29 14:53] VITALS: BP 104/75
--- NOTE | 2020-11-29 15:37 | Ultrasound Report ---
PROCEDURE: Pelvic w/Transvag+Doppler Comp INDICATIONS: Vaginal bleeding TECHNIQUE: Real-time scanning was performed of the pelvic organs, with image documentation. Additional endovagi nal scanning was necessary due to incomplete visualization of the adnexal and endometrial structures by transabdominal scanning. COMPARISON: None. FINDINGS: The uterine body measures 2.8 x 4.7 x 7.5 cm. Normal appearance of the endometrium measuring 6 mm in double layer thickness. No uterine mass. Both ovaries normal in size and appearance. No ovarian or adnexal mass. Bilateral ovarian blood flow identified. Trace free pelvic fluid in the cul-de-sac. IMPRESSION: Normal exam. Reviewed by: Se Stein MD on 11/29/2020 3:36 PM PDT Approved by: Se Stein MD on 11/29/2020 3:36 PM PDT Station ID: [id number]
== END 2020-11-29 15:06 | disposition home or self-care (01) ==
LOC: ED 12:52
DX: N93.9 Abnormal uterine and vaginal bleeding, unspecified (principal); R04.2 Hemoptysis
CPT/HCPCS: 36415; 80048; 81025; 85025; 85610; 85730; 93975; 99284

== ENCOUNTER 2023-04-14 14:30 | Outpatient (CLI) | payer SELFPAY ==
[2023-04-14 18:06] LABS: HCG,QUALITATIVE BLOOD NEGATIVE
[2023-04-14 20:06] LABS: BACTERIAL VAGINOSIS DNA NEGATIVE (NEGATIVE); CANDIDA GLABRATA DNA NEGATIVE (NEGATIVE); CANDIDA GROUP DNA POSITIVE (NEGATIVE); CANDIDA KRUSEI DNA NEGATIVE (NEGATIVE); TRICHOMONAS VAGINALIS DNA NEGATIVE (NEGATIVE)
[2023-04-14 21:22] LABS: CHLAMYDIA TRACHOMATIS DNA NEGATIVE (NEGATIVE); NEISSERIA GONORRHOEAE DNA NEGATIVE (NEGATIVE)
[2023-04-15 05:13] LABS: RPR Non Reactive (Non Reactive)
[2023-04-15 12:09] LABS: HIV SCREEN 4TH GENERATION Non Reactive (Non Reactive)
[2023-04-15 13:10] LABS: HSV 2 IGG TYPE SPEC <0.91 index (0.00-0.90)
[2023-04-15 21:07] LABS: HCV AB Non Reactive (Non Reactive)
== END 2023-04-14 14:45 | disposition home or self-care (01) ==
LOC: LAB.N 14:30
PROVIDERS: ATTEND Family Medicine
DX: Z11.3 Encounter for screening for infections with a predominantly sexual mode of transmission (principal); N94.6 Dysmenorrhea, unspecified
CPT/HCPCS: 36415; 81514; 84703; 86592; 86695; 86696; 86803; 87389; 87491; 87591; 87661